=== PATIENT | male | born 1970 | race Two or more races ===

== ENCOUNTER → 2017-01-19 | Outpatient (CLI) | payer MEDICARE, MEDICAID ==
[~2017-01-19] MED LIST: /BACL20TA OR; MULTIVIT PO; OXYC40TA19 OR; PERC5TAB8 OR; PREG100CA OR; TEMA30CA OR; TIZA2TAB OR; VENL37.5 OR
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
== END ==
LOC: M PAIN 15:40
PROVIDERS: ATTEND Nurse Practitioner Family
DX: M54.2 Cervicalgia (principal); M54.6 Pain in thoracic spine; M79.1 Myalgia; Z79.891 Long term (current) use of opiate analgesic; Z79.899 Other long term (current) drug therapy; G82.20 Paraplegia, unspecified; G47.00 Insomnia, unspecified; F17.200 Nicotine dependence, unspecified, uncomplicated; Z88.1 Allergy status to other antibiotic agents; Z88.5 Allergy status to narcotic agent